=== PATIENT | female | born 1960 | race Caucasian/White ===

== ENCOUNTER 2018-05-10 17:46 | Emergency (ER) | payer BC, MEDICAID ==
[~2018-05-10] VITALS: Ht 165.1 cm; Wt 72.5 kg
[2018-05-10] MEDS ORDERED: ketorolac trometh. 30mg/ml inj. IM ONE (21:50)
[2018-05-10 22:49] VITALS: BP 142/68
== END 2018-05-10 22:51 | disposition home or self-care (01) ==
LOC: ER 17:47
DX: S09.90XA Unspecified injury of head, initial encounter (principal); M25.511 Pain in right shoulder; F17.210 Nicotine dependence, cigarettes, uncomplicated; Y92.89 Other specified places as the place of occurrence of the external cause; Z88.0 Allergy status to penicillin; W19.XXXA Unspecified fall, initial encounter; Y93.89 Activity, other specified; Y99.8 Other external cause status; R20.0 Anesthesia of skin
CPT/HCPCS: 70450; 72040; 73030; 96372; 99284; J1885